=== PATIENT | female | born 1995 | race Caucasian/White ===

== ENCOUNTER 2017-01-21 16:00 | Emergency (ER) | payer BC ==
[~2017-01-21] VITALS: Ht 162.6 cm; Wt 60.0 kg
[2017-01-21 16:05] VITALS: BP 138/86; TEMP 36.5; Ht 162.6 cm; Wt 60.0 kg
--- NOTE | 2017-01-21 16:30 | DIAGNOSTIC IMAGING REPORT ---
RIGHT ANKLE MIN 3 VIEWS ROUTINE CLINICAL HISTORY: fall down 1-3 steps; R ankle pain Right trauma. Pain. COMPARISON: None. DISCUSSION: The bones and joint spaces appear intact. There is no evidence of fracture, dislocation or bony disease. There is no evidence for soft tissue swelling. IMPRESSION: Negative study. Electronically signed by: Ezio Barnes M.D. 01/21/2017 4:28 PM Dictated Date/Time: 01/21/2017 4:28 PM
[2017-01-21] MEDS ORDERED: IBUPROFEN 600 MG TAB PO STA (16:39)
[2017-01-21] MEDS ORDERED: BCPILLS PO (16:44)
[2017-01-21 16:51] VITALS: PULSE 77; O2SAT 98
--- NOTE | 2017-01-23 16:56 | EMERGENCY ROOM VISIT NOTE ---
ED Visit Note First contact with patient: 16:04 CHIEF COMPLAINT: Right ankle pain. HISTORY OF PRESENT ILLNESS: Ms. Ortega is a 21-year old female who is brought via wheelchair into the ED complaining of right lateral ankle pain. She reports approximately 30 minutes ago she was walking on This. She was walking down a flight of stairs lost her balance and slipped down 3 stairs injuring her right ankle. She is not exactly sure of the mechanism of injury. Since that time she reports she has been having severe pain over the lateral aspect. She is currently complaining of constant sharp and throbbing pain over the lateral malleolus and the surrounding ligamentous structures. She rates the pain a 10/10. Pain is nonradiating. Pain increases with weightbearing, ambulation, palpation, all movements of the ankle. She has not identified any alleviating factors related to the pain. She has not taken any medications for pain prior to arrival at the hospital. She denies any associated symptoms including hip pain, knee pain, lower leg pain, foot pain, leg weakness/numbness/ tingling. Additionally she denies any previous significant injuries or surgeries to the ankle. REVIEW OF SYSTEMS: As noted above in History of Present Illness. PAST MEDICAL HISTORY: Patient denies. CURRENT MEDICATIONS: control. ALLERGIES TO MEDICATIONS: Patient denies. SOCIAL HISTORY: Patient is currently University student; she feels safe in her home environment; she denies tobacco use. PHYSICAL EXAM: Vital Signs: Date Time Temp Pulse Resp B/P Pulse Ox O2 Delivery O2 Flow Rate FiO2 01/21/17 16:51 77 18 98 01/21/17 16:05 36.5 99 18 138/86 99 Room Air General: 21 year old female in mild distress due to pain, nontoxic-appearing, afebrile and hemodynamically stable. Neurological: Awake, alert, oriented to person place and time. Answering questions appropriately and following commands. Skin: Warm dry and pink. No soft tissue injuries. Right Lower Extremity: No gross abbie deformities. No tenderness in the hip or knee. Mottling tenderness over the ligamentous structures surrounding the malleolus with mild swelling but no bony deformity, bony crepitus or ecchymosis. Ligamentous testing was difficult due to patient's pain, but I did not appreciate any great laxity at the ankle. Throughout the foot the skin is pink and warm with brisk capillary refill. Able to distinguish light sensations through all dermatomes of the foot. ED COURSE: Patient is assessed as noted above. Right Ankle X-Rays: Was read by myself and the radiologist and shows no acute fractures or dislocations. No evidence of soft tissue swelling or bony disease Patient is given ice for pain, swelling and comfort and 600 mg of ibuprofen by mouth for pain. Patient is placed in a gel splint and is instructed on crutch use. Patient is educated about her condition and instructed on her treatment plan; she verbalizes understanding and agreement with the our plan. CLINICAL IMPRESSION: Right ankle sprain. DISPOSITION: Patient is discharged to home in stable condition accompanied by a friend; prior to departure she was reassessed and subjectively reported she was pain-free. PLAN: Comfort measures were discussed with the patient. Patient was encouraged to follow-up with an orthopedic physician if no better in 7 to 10 days. Patient was encouraged to return ED for worsening/uncontrolled pain, uncontrolled swelling, foot weakness/numbness/tingling or any new/concerning symptoms.
== END 2017-01-21 16:53 | disposition home or self-care (01) ==
LOC: EDBD 16:00 → C.EDD 16:03
DX: S93.401A Sprain of unspecified ligament of right ankle, initial encounter (principal); W10.9XXA Fall (on) (from) unspecified stairs and steps, initial encounter; Z79.3 Long term (current) use of hormonal contraceptives